=== PATIENT | male | born 1950 | race African-American/Black ===

== ENCOUNTER 2016-08-08 09:12 | Outpatient (CLI) | payer OTHER ==
[2016-08-08 10:59] LABS: #Eosinphils 0.1 thou/uL (0.0-0.7); #Monocytes 0.6 thou/uL (0.11-0.59); #Neutrophils 4.4 thou/uL (1.40-6.50); %Basophils 0.8 % (0.0-1.0); %Eosinophils 1.9 % (0.0-10.0); %Lymphocytes 16.8 % (21.0-51.0); %Monocytes 8.9 % (0.0-10.0); %Neutrophils 71.6 % (42.0-75.0); Hemoglobin 13.4 g/dL (14.0-18.0); Mean Corpuscular HGB CONC 31.8 g/dL (32.0-36.0); Mean Corpuscular Hemoglobin 28.9 pg (27.0-31.0); Mean Corpuscular Volume 90.9 fl (80.0-94.0); Mean Platelet Volume 7.8 fL (7.4-10.4); Platelet Count 186 thou/uL (130-400); RBC Distribution Width 13.3 % (11.5-14.5); Red Blood Cell (RBC) Count 4.63 mill/uL (4.70-6.10); White Blood Cell (WBC) Count 6.1 thou/uL (4.8-10.8)
[2016-08-08 11:40] LABS: PSA-Asymptomatic (SCREENING) 2.96 ng/mL (0-4.0); Thyroid Stimulating Hormone 1.6471 uIU/mL (0.35-4.94)
[2016-08-08 11:53] LABS: ALT (SGPT) 25 U/L (0-55); AST (SGOT) 21 U/L (5-34); Albumin 4.3 g/dL (3.4-4.8); Alkaline Phosphatase 61 U/L (40-150); Anion Gap 11 mmol/L (10-20); BUN (Urea Nitrogen) 22 mg/dL (8.4-25.7); Calc. Creatinine Clearance 0 mL/min (70-130); Calcium 9.3 mg/dL (7.8-10.44); Carbon Dioxide 27 mmol/L (23-31); Cardiac Risk 3.6 (Less than 4.5); Chloride 105 mmol/L (98-107); Cholesterol 195 mg/dL (< 200 Desired); Estimated GFR-MDRD 57; Globulin 2.9 g/dL (2.4-3.5); Glucose 94 mg/dL (80-115); HDL Cholesterol 54 mg/dL (>60 Neg Risk); LDL Cholesterol, Calculated 127 mg/dL; Potassium 4.2 mmol/L (3.5-5.1); Protein, Total 7.2 g/dL (5.8-8.1); Sodium 139 mmol/L (136-145); Triglycerides 72 mg/dL (Less than 150)
[2016-08-08 18:12] LABS: Creatinine, Urine 174.01 mg/dL (63-166); Microalbumin Urine 3.4 mg/dL (0.5-50.0); Microalbumin/Creat Ratio 19.5 mg/g (Less than 30)
== END 2016-08-08 09:13 | disposition home or self-care (01) ==
LOC: HPCALD 09:12
PROVIDERS: ATTEND Family Medicine
DX: Z12.5 Encounter for screening for malignant neoplasm of prostate (principal); E78.00 Pure hypercholesterolemia, unspecified; E11.9 Type 2 diabetes mellitus without complications; I10 Essential (primary) hypertension
CPT/HCPCS: 36415; 80053; 80061; 82043; 83036; 84443; 85025; G0103

== ENCOUNTER 2017-02-10 08:48 | Outpatient (CLI) | payer OTHER ==
[2017-02-10 10:35] LABS: Anion Gap 12 mmol/L (10-20); BUN (Urea Nitrogen) 26 mg/dL (8.4-25.7); Calc. Creatinine Clearance 0 mL/min (70-130); Calcium 9.6 mg/dL (7.8-10.44); Carbon Dioxide 28 mmol/L (23-31); Chloride 105 mmol/L (98-107); Estimated GFR-MDRD 53; Glucose 109 mg/dL (80-115); Potassium 4.1 mmol/L (3.5-5.1); Sodium 141 mmol/L (136-145)
[2017-02-10 10:37] LABS: Hemoglobin A1c 6.2 % (4.0-6.0)
== END 2017-02-10 08:49 | disposition home or self-care (01) ==
LOC: HPCALD 08:48
PROVIDERS: ATTEND Family Medicine
DX: N18.3 Chronic kidney disease, stage 3 (moderate) (principal); E11.22 Type 2 diabetes mellitus with diabetic chronic kidney disease
CPT/HCPCS: 36415; 80048; 83036

== ENCOUNTER 2017-09-03 09:18 | Outpatient (CLI) | payer OTHER ==
--- NOTE | 2017-09-04 07:27 | ULT ---
BILATERAL RENAL ULTRASOUND: 09/03/2017 TECHNIQUE: Ultrasonography of the urinary tract was performed. FINDINGS: The right kidney appears normal and measures 10.4 x 4.9 x 4.1 cm. No mass, hydronephrosis, cortical thinning, or abnormality of cortical echogenicity is seen. Similarly, the left kidney appears normal and measures 11 x 5.3 x 4.4 cm. No mass, hydronephrosis, o r other abnormality is seen. The urinary bladder has some slight concentric thickening to its wall; however, it is not well disten ded, so this may or may not be significant. The prostate seems slightly large, measuring 4.9 x 3.6 x 4.5 cm. Its margins are questionably lobulated or irregular. A routine digital exam might be prude nt. IMPRESSION: 1. No significant renal findings. 2. Mild prostatic enlargement and slight lobulation or irregularity. See above. POS: HOME
== END 2017-09-03 09:19 | disposition home or self-care (01) ==
LOC: BURULT 09:18
PROVIDERS: ATTEND Family Medicine
DX: N28.9 Disorder of kidney and ureter, unspecified (principal); R97.20 Elevated prostate specific antigen [PSA]; N40.0 Benign prostatic hyperplasia without lower urinary tract symptoms
CPT/HCPCS: 76770

== ENCOUNTER 2019-08-09 16:31 | Outpatient (CLI) | payer OTHER ==
--- NOTE | 2019-08-09 19:52 | RAD ---
CERVICAL SPINE: Date: 08-09-2019 AP, lateral, and open mouth views are provided. FINDINGS: There is loss of the normal cervical lordosis. No fracture or dislocation was seen. Extensive degener ative changes are present at multiple levels consisting of anterior osteophytes, as well as disc spac e narrowing at C3-4, C4-5 and C6-7. The soft tissues appear normal. IMPRESSION: Extensive degenerative change. POS: HOME
--- NOTE | 2019-08-09 19:53 | RAD ---
THORACIC SPINE THREE VIEWS: Date: 08-09-2019 FINDINGS: No fracture was seen. There are extensive degenerative changes, mainly consisting of anterior osteoph ytes at multiple levels. Endplate sclerosis and large osteophytes are seen at one of the lower levels , probably upper lumbar. The paravertebral soft tissues were unremarkable. IMPRESSION: Moderately severe degenerative change. POS: HOME
== END 2019-08-09 16:32 | disposition home or self-care (01) ==
LOC: BURRAD 16:31
PROVIDERS: ATTEND Family Medicine
DX: M54.6 Pain in thoracic spine (principal); G89.29 Other chronic pain; M47.814 Spondylosis without myelopathy or radiculopathy, thoracic region; M47.812 Spondylosis without myelopathy or radiculopathy, cervical region
CPT/HCPCS: 72040; 72072